=== PATIENT | male | born 1965 | race African-American/Black ===

== ENCOUNTER 2016-03-23 15:07 | Emergency (ER) | payer OTHER ==
[~2016-03-23] VITALS: Ht 176.5 cm; Wt 130.2 kg
[~2016-03-23 15:07] MED LIST: CHLORTHALIDONE50 MG PO; LISINOPRIL40 MG PO; NAPROSYN 500 M500 MG PO; PERCOCET 325 MG1 TA2 PO
--- NOTE | 2016-03-23 16:28 | CT SCAN REPORT ---
EXAMINATION: CT HEAD WITHOUT CONTRAST CLINICAL INFORMATION: Headache and dizziness. COMPARISON: None. TECHNIQUE: Contiguous axial imaging was performed from the skull base to vertex without intravenous administration of contrast. DLP: 600.71 mGy-cm. FINDINGS: The brain parenchyma has normal attenuation with well-preserved enriquez-white matter differentiation. No evidence of an acute major vascular territory infarction, intracranial hemorrhage, extra-axial fluid collection, focal mass effect or midline shift. The ventricles have normal size and configuration. The sulci and basilar cisterns are unremarkable. The calvarium is intact and the mastoid air cells and middle ear cavities are clear. There is mild mucosal thickening of ethmoid air cells. The visualized portions of the orbits, globes and temporomandibular joints are normal. IMPRESSION: No acute intracranial pathology.
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
[2016-03-23 16:46] LABS: ABSOLUTE BASOPHIL COUNT 0 /CUMM (0.0-0.2); ABSOLUTE EOSINOPHIL COUNT 0.3 /CUMM (0.0-0.7); ABSOLUTE GRANULOCYTE CT 6.5 /CUMM (1.4-6.5); ABSOLUTE LYMPH COUNT 1.9 /CUMM (1.2-3.4); ABSOLUTE MONOCYTE COUNT 0.7 /CUMM (0.10-0.60); BASOPHIL % 0.5 % (0.0-2.0); EOSINOPHIL % 3.3 % (0-5); GRANULOCYTE % 68.5 % (42.2-75.2); HEMATOCRIT 48.4 % (42-52); MEAN CORPUSCULAR HGB CONC 33.7 G/DL (33.0-37.0); MEAN CORPUSCULAR VOLUME 89.1 FL (80.0-94.0); MEAN PLATELET VOLUME 9.9 FL (7.4-10.4); PLATELET COUNT 223 /CUMM (130-400); RBC DISTRIBUTION WIDTH 13.8 % (11.5-14.5); RED BLOOD CELL CT 5.43 /CUMM (4.70-6.10); WHITE BLOOD CELL COUNT 9.5 /CUMM (4.8-10.8)
[2016-03-23 18:00] VITALS: BP 140/88
[2016-03-23] MEDS ORDERED: LISINOPRIL40 M1 PO (18:09)
== END 2016-03-23 19:13 ==
LOC: ERH 15:07
PROVIDERS: Physician Assistant Medical
DX: I10 Essential (primary) hypertension (principal)
CPT/HCPCS: 81001; 93005; 93010